=== PATIENT | male | born 1970 | race Caucasian/White ===

== ENCOUNTER 2018-01-23 03:14 | Emergency (ER) | payer MEDICAID, OTHER ==
[2018-01-23] MEDS: MECLIZINE 12.5 MG TAB PO (04:01)
== END 2018-01-23 05:16 | disposition home or self-care (01) ==
LOC: FTE 03:14
DX: R42 Dizziness and giddiness (principal); F17.210 Nicotine dependence, cigarettes, uncomplicated
CPT/HCPCS: 99282; Z7502